=== PATIENT | female | born 1935 | race African-American/Black ===

== ENCOUNTER 2018-05-23 10:17 | Inpatient (IN) | payer MEDICARE, MEDICAID ==
[~2018-05-23] VITALS: Ht 154.9 cm; Wt 49.0 kg
[~2018-05-23 10:17] MED LIST: ALEN70TA46 PO; CALC1TAB99 PO; CIME400T PO; FENO145T36 MT; FERR325T6 MT; FOLI-43 MT; MELO-106 MT; PHEN97.22 GT
[2018-05-23] MEDS ORDERED: SODIUM CHLORIDE 0.9% 500 ML IV ONE (10:39)
[2018-05-23 11:21] LABS: BASOPHILS % 1.3 % (0.0-2.0); EOSINOPHILS % 3.7 % (0.0-5.0); HEMATOCRIT. 30.6 % (36.0-48.0); HEMOGLOBIN. 10.8 g/dL (12.0-16.0); LYMPHOCYTES % 18.4 % (20.0-50.0); MEAN CORPUSCULAR HEMOGLOBIN 34.1 pg (28.0-32.0); MEAN CORPUSCULAR VOLUME 96.9 fL (81.0-99.0); MEAN PLATELET VOLUME 9.5 fl (7.4-10.4); MONOCYTES % 10.3 % (2.0-8.0); NEUTROPHILS % 66.3 % (40.0-76.0); PLATELET 369 x1000/uL (130-400); RED BLOOD CELL COUNT 3.16 mill/uL (4.2-5.4); RED CELL DISTRIBUTION WIDTH 14.9 % (11.6-14.6)
[2018-05-23 11:28] LABS: CHLORIDE 102 mEq/L (98-107)
[2018-05-23 11:30] LABS: PARTIAL THROMBOPLASTIN TIME 25.8 sec (23.4-31.0); PROTHROMBIN TIME 10.9 sec (9.4-11.6)
[2018-05-23 11:36] LABS: PHENOBARBITAL 6.1 ug/mL (15.0-40.0)
[2018-05-23] MEDS ORDERED: ONDANSETRON HCL 4MG/2ML VIAL IV PRN (12:00)
[2018-05-23] MEDS ORDERED: NA PHOS,M-B/NA PHOS,DI-BA ENEMA 118ML PR PRN (12:00)
[2018-05-23] MEDS ORDERED: DEXT 5%/0.45% NACL 1000ML 1,000 ML IV SCH (12:00)
[2018-05-23] MEDS ORDERED: DIPHENHYDRAMINE 50MG/ML VIAL IV PRN (12:00)
[2018-05-23] MEDS ORDERED: IPRATROPIUM/ALBUTEROL 0.5-3(2.5)MG/3ML NEB INH PRN (12:00)
[2018-05-23] MEDS ORDERED: PHENOBARBITAL SODIUM 65MG/ML 1ML IV ONE (12:00)
[2018-05-23] MEDS ORDERED: PHENOBARBITAL SODIUM 65MG/ML 1ML IV NR (12:15)
[2018-05-23 14:00] VITALS: BP 101/44
[2018-05-23 16:00] VITALS: BP 101/44
[2018-05-23] MEDS ORDERED: LORAZEPAM 2MG/ML CPJ IV PRN (17:00)
[2018-05-23] MEDS ORDERED: FAMO20TA8 GT (18:21)
[2018-05-23] MEDS ORDERED: GEMF600T GT (18:21)
[2018-05-23] MEDS ORDERED: PNEUMOCOCCAL 23-VAL P-SAC VAC 0.5 ML IM ONE (18:30)
[2018-05-23 18:55] LABS: CLARITY URINE CLEAR (CLEAR); COLOR URINE YELLOW (YELLOW); KETONES URINE NEGATIVE (NEGATIVE); LEUKOCYTE ESTERASE URINE NEGATIVE (NEGATIVE); NITRITE URINE NEGATIVE (NEGATIVE); OCCULT BLOOD URINE NEGATIVE (NEGATIVE); PH URINE 8.5 (4.5-8.0); PROTEIN URINE NEGATIVE (NEGATIVE); SPECIFIC GRAVITY URINE 1.014 (1.005-1.030); UROBILINOGEN URINE 0.2 E.U./dL (0.2-1.0)
[2018-05-23 20:00] VITALS: BP 122/57
[2018-05-23] MEDS: PANTOPRAZOLE SODIUM 40 MG/VIAL IV SCH (20:29)
[2018-05-23] MEDS: LORAZEPAM 2MG/ML CPJ IV PRN (23:20)
[2018-05-23] MEDS: ACETAMINOPHEN 650MG SUPP PR PRN (23:20)
[2018-05-24] VITALS: BP 95/42
[2018-05-24 04:00] VITALS: BP 104/62
[2018-05-24 06:46] LABS: INR 1.1; PARTIAL THROMBOPLASTIN TIME 25.2 sec (23.4-31.0); PROTHROMBIN TIME 11.6 sec (9.4-11.6)
[2018-05-24 06:47] LABS: CHLORIDE 107 mEq/L (98-107)
[2018-05-24 06:56] LABS: AMYLASE 78 IU/L (25-115); HDL CHOLESTEROL 58 mg/dL (40-59)
[2018-05-24 06:57] LABS: LDL CHOLESTEROL 101 mg/dL (5-100)
[2018-05-24] MEDS: LORAZEPAM 2MG/ML CPJ IV PRN ×2 (07:32→21:34)
[2018-05-24 08:00] VITALS: BP 133/61
[2018-05-24] MEDS: PHENOBARBITAL SODIUM 65MG/ML 1ML IV SCH (08:29)
[2018-05-24] MEDS: PANTOPRAZOLE SODIUM 40 MG/VIAL IV SCH ×2 (08:30→21:32)
[2018-05-24] MEDS ORDERED: CEFAZOLIN 1000MG PREMIX 50 ML IV PRN (09:00)
[2018-05-24 10:04] LABS: BASOPHILS % 1.5 % (0.0-2.0); HEMATOCRIT. 27.9 % (36.0-48.0); HEMOGLOBIN. 9.4 g/dL (12.0-16.0); LYMPHOCYTES % 26.5 % (20.0-50.0); MEAN CORPUSCULAR HEMOGLOBIN 31.4 pg (28.0-32.0); MEAN PLATELET VOLUME 9.5 fl (7.4-10.4); MONOCYTES % 11.4 % (2.0-8.0); NEUTROPHILS % 55.6 % (40.0-76.0); PLATELET 335 x1000/uL (130-400); RED BLOOD CELL COUNT 3.01 mill/uL (4.2-5.4)
[2018-05-24 10:06] LABS: MEAN CORPUSCULAR VOLUME 92.9 fL (81.0-99.0)
[2018-05-24 12:00] VITALS: BP 123/47
[2018-05-24 16:00] VITALS: BP 120/54
[2018-05-24] MEDS ORDERED: MIDAZOLAM HCL 2 MG/2 ML VIAL IV NR (19:35)
[2018-05-24] MEDS ORDERED: MIDAZOLAM HCL 5 MG/5 ML VIAL ONE (19:37)
[2018-05-24] MEDS ORDERED: FENTANYL CITRATE/PF 50MCG/ML 2ML VIAL ONE (19:37)
[2018-05-24] MEDS ORDERED: CEFAZOLIN 1000MG PREMIX 50 ML IV ONE (19:54)
[2018-05-24 20:45] VITALS: BP 115/68
[2018-05-24] MEDS: ACETAMINOPHEN 650MG SUPP PR PRN (21:33)
[2018-05-25] VITALS: BP 110/62
[2018-05-25 04:00] VITALS: BP 112/79
[2018-05-25 08:00] VITALS: BP 112/40
[2018-05-25] MEDS: PHENOBARBITAL SODIUM 65MG/ML 1ML IV SCH (08:44)
[2018-05-25] MEDS ORDERED: SODIUM CHLORIDE 0.9% 500 ML IV ONE (10:00)
[2018-05-25 11:28] LABS: CHLORIDE 107 mEq/L (98-107)
[2018-05-25 12:00] VITALS: BP 114/56
[2018-05-25] MEDS ORDERED: SODIUM CHLORIDE 0.9% 10ML VIAL ONE (14:05)
[2018-05-25] MEDS ORDERED: SIMETHICONE 40 MG/0.6 ML 30ML ONE (14:05)
[2018-05-25 15:11] VITALS: BP 114/56
== END 2018-05-25 17:00 | DRG 393 ==
LOC: ER 10:17 → 6EST 10:45 → EDBEDREQ 10:48 → ENRESERV 11:45
PROVIDERS: ADMIT Internal Medicine; ATTEND Internal Medicine
PROC: 0DH68UZ Insertion of Feeding Device into Stomach, Via Natural or Artificial Opening Endoscopic (ICD-10-PCS; principal; 2018-05-24 17:30)
DX: K94.23 Gastrostomy malfunction (principal); E43 Unspecified severe protein-calorie malnutrition; D68.59 Other primary thrombophilia; G40.909 Epilepsy, unspecified, not intractable, without status epilepticus; G24.9 Dystonia, unspecified; R79.89 Other specified abnormal findings of blood chemistry; D64.9 Anemia, unspecified; K29.70 Gastritis, unspecified, without bleeding; R62.7 Adult failure to thrive; R13.12 Dysphagia, oropharyngeal phase; F03.90 Unspecified dementia, unspecified severity, without behavioral disturbance, psychotic disturbance, mood disturbance, and anxiety; Y83.3 Surgical operation with formation of external stoma as the cause of abnormal reaction of the patient, or of later complication, without mention of misadventure at the time of the procedure; K44.9 Diaphragmatic hernia without obstruction or gangrene; Z68.20 Body mass index [BMI] 20.0-20.9, adult; Y92.128 Other place in nursing home as the place of occurrence of the external cause; Z86.61 Personal history of infections of the central nervous system; Z79.899 Other long term (current) drug therapy
CPT/HCPCS: 36415; 71045; 74018; 76700; 80048; 80053; 80061; 80184; 81003; 82150; 83690; 84439; 84443; 85025; 85610; 85730; 87040; 87070; 87086; 87205; 92610; 93005; 96361; 96374; 97161; 99285; A6261; C9113; J0690; J1200; J2060; J2250; J2560; J3010; J7040; A4315

== ENCOUNTER 2018-12-01 12:31 | Inpatient (IN) | payer MEDICARE, MEDICAID ==
[~2018-12-01] VITALS: Ht 154.9 cm; Wt 50.9 kg
[~2018-12-01 12:31] MED LIST changes: +FAMO20TA8 GT; +GEMF600T GT
[2018-12-01] MEDS ORDERED: SODIUM CHLORIDE 0.9% 1,000 ML IV ONE (13:55)
[2018-12-01] MEDS ORDERED: PIPERACILLIN/TAZ 3.375G PREMIX 50 ML IV ONE (14:00)
[2018-12-01] MEDS ORDERED: VANCOMYCIN 1 G PREMIX 200 ML IV ONE (14:00)
[2018-12-01] MEDS ORDERED: SODIUM CHLORIDE 0.9% 1000ML BAG (SEPSIS BOLUS) IV ONE (14:00)
[2018-12-01] MEDS ORDERED: DIATR MEGLU/DIATRIZOATE SOLN 30ML ONE (14:20)
[2018-12-01 16:18] LABS: EOSINOPHILS % 2.8 % (0.0-5.0); HEMATOCRIT. 30.1 % (36.0-48.0); HEMOGLOBIN. 10.2 g/dL (12.0-16.0); LYMPHOCYTES % 27.1 % (20.0-50.0); MEAN CORPUSCULAR HEMOGLOBIN 33.2 pg (28.0-32.0); MEAN CORPUSCULAR VOLUME 97.9 fL (81.0-99.0); MEAN PLATELET VOLUME 9.7 fl (7.4-10.4); MONOCYTES % 11.5 % (2.0-8.0); NEUTROPHILS % 57.6 % (40.0-76.0); PLATELET 254 x1000/uL (130-400); RED BLOOD CELL COUNT 3.08 mill/uL (4.2-5.4); RED CELL DISTRIBUTION WIDTH 15.5 % (11.6-14.6)
[2018-12-01 16:21] LABS: CHLORIDE 103 mEq/L (98-107)
[2018-12-01 16:22] LABS: INR 1.1; PROTHROMBIN TIME 10.7 sec (9.1-11.1)
[2018-12-01 16:36] LABS: CARBAMAZEPINE < 0.5 ug/mL (4-12); PHENOBARBITAL < 2.1 ug/mL (15.0-40.0)
[2018-12-01 20:00] VITALS: BP 121/52
[2018-12-01 23:17] VITALS: BP 121/52
[2018-12-02] VITALS (7 sets, daily range): BP systolic 104–121; BP diastolic 42–58
[2018-12-02] MEDS ORDERED: VANCOMYCIN 1 G PREMIX 200 ML IV SCH (00:15)
[2018-12-02] MEDS: PIPERACILLIN/TAZ 3.375G PREMIX 50 ML IV SCH ×4 (02:42→22:06)
[2018-12-02] MEDS: DEXT 5%/0.45% NACL KCL 20MEQ/L 1,000 ML IV SCH ×3 (02:45→22:06)
[2018-12-02] MEDS ORDERED: VANCOMYCIN 1500MG in DEXTROSE 5% WATER 250ML IV SCH (04:00)
[2018-12-02 07:11] LABS: CHLORIDE 107 mEq/L (98-107)
[2018-12-02 07:33] LABS: BASOPHILS % 0.6 % (0.0-2.0); EOSINOPHILS % 3.5 % (0.0-5.0); HEMATOCRIT. 28.3 % (36.0-48.0); HEMOGLOBIN. 9.8 g/dL (12.0-16.0); LYMPHOCYTES % 22.7 % (20.0-50.0); MEAN CORPUSCULAR HEMOGLOBIN 32.9 pg (28.0-32.0); MEAN CORPUSCULAR VOLUME 95.5 fL (81.0-99.0); MEAN PLATELET VOLUME 9.8 fl (7.4-10.4); MONOCYTES % 11.5 % (2.0-8.0); NEUTROPHILS % 61.7 % (40.0-76.0); PLATELET 236 x1000/uL (130-400); RED BLOOD CELL COUNT 2.97 mill/uL (4.2-5.4); RED CELL DISTRIBUTION WIDTH 15.3 % (11.6-14.6)
[2018-12-02] MEDS: FAMOTIDINE 20MG/2ML VIAL IV SCH (08:30)
[2018-12-02] MEDS ORDERED: HEPARIN 5000 UNITS/ML VIAL SUBCUT SCH (09:00)
[2018-12-02] MEDS ORDERED: FAMOTIDINE 20MG/2ML VIAL IV SCH (09:00)
[2018-12-02] MEDS ORDERED: ACETAMINOPHEN 650MG SUPP PR PRN (15:30)
[2018-12-02] MEDS: PHENOBARBITAL SODIUM 65MG/ML 1ML IV SCH (21:37)
[2018-12-02] MEDS: ONDANSETRON HCL 4MG/2ML INJ IV PRN (22:09)
[2018-12-02] MEDS: VANCOMYCIN 750 MG PREMIX 150 ML IV SCH (23:48)
[2018-12-03] VITALS: BP 117/87
[2018-12-03] MEDS: PIPERACILLIN/TAZ 3.375G PREMIX 50 ML IV SCH ×2 (02:52→09:59)
[2018-12-03 04:00] VITALS: BP 119/47
[2018-12-03 07:51] LABS: HEMOGLOBIN 10.2 g/dL (12.0-16.0); MEAN CORPUSCULAR HEMOGLOBIN 32.3 pg (28.0-32.0); MEAN CORPUSCULAR VOLUME 94.8 fL (81.0-99.0); PLATELET 246 x1000/uL (130-400); RED BLOOD CELL COUNT 3.16 mill/uL (4.2-5.4); RED CELL DISTRIBUTION WIDTH 14.8 % (11.6-14.6)
[2018-12-03 08:00] VITALS: BP 109/49
[2018-12-03 08:09] LABS: CHLORIDE 102 mEq/L (98-107)
[2018-12-03 08:32] LABS: INR 1.1; PARTIAL THROMBOPLASTIN TIME 30.1 sec (23.4-31.0); PROTHROMBIN TIME 10.9 sec (9.1-11.1)
[2018-12-03] MEDS: FAMOTIDINE 20MG/2ML VIAL IV SCH (09:59)
[2018-12-03 12:00] VITALS: BP 115/47
[2018-12-03 16:00] VITALS: BP 119/42
[2018-12-03] MEDS ORDERED: PIPERACILLIN/TAZ 2.25G PREMIX 50 ML IV SCH (18:00)
[2018-12-03] MEDS: DEXT 5%/0.45% NACL KCL 20MEQ/L 1,000 ML IV SCH (18:05)
[2018-12-03] MEDS: VANCOMYCIN 750 MG PREMIX 150 ML IV SCH (18:11)
[2018-12-03 20:00] VITALS: BP 109/62
[2018-12-03] MEDS: PHENOBARBITAL SODIUM 65MG/ML 1ML IV SCH (20:57)
[2018-12-03] MEDS: PIPERACILLIN/TAZ 2.25G PREMIX 50 ML IV SCH (21:22)
[2018-12-04] VITALS: BP 119/56
[2018-12-04] MEDS: PIPERACILLIN/TAZ 2.25G PREMIX 50 ML IV SCH ×4 (02:57→22:17)
[2018-12-04] MEDS: ONDANSETRON HCL 4MG/2ML INJ IV PRN (02:57)
[2018-12-04 04:00] VITALS: BP 107/41
[2018-12-04 08:00] VITALS: BP 126/65
[2018-12-04 09:49] LABS: HEMATOCRIT 32.4 % (36.0-48.0); HEMOGLOBIN 11.1 g/dL (12.0-16.0); MEAN CORPUSCULAR HEMOGLOBIN 31.9 pg (28.0-32.0); MEAN CORPUSCULAR VOLUME 93.4 fL (81.0-99.0); PLATELET 278 x1000/uL (130-400); RED BLOOD CELL COUNT 3.47 mill/uL (4.2-5.4); RED CELL DISTRIBUTION WIDTH 14.8 % (11.6-14.6)
[2018-12-04 10:24] LABS: CHLORIDE 97 mEq/L (98-107)
[2018-12-04 10:32] LABS: PHOSPHORUS 3.8 mg/dL (2.5-4.9)
[2018-12-04] MEDS: FAMOTIDINE 20MG/2ML VIAL IV SCH (10:44)
[2018-12-04 12:00] VITALS: BP 106/56
[2018-12-04] MEDS: VANCOMYCIN 750 MG PREMIX 150 ML IV SCH (13:39)
[2018-12-04 16:00] VITALS: BP 126/73
[2018-12-04 20:00] VITALS: BP 122/58
[2018-12-04] MEDS: PHENOBARBITAL SODIUM 65MG/ML 1ML IV SCH (22:18)
[2018-12-05] VITALS: BP 120/61
[2018-12-05 04:00] VITALS: BP 115/66
[2018-12-05] MEDS: PIPERACILLIN/TAZ 2.25G PREMIX 50 ML IV SCH ×4 (05:46→21:27)
[2018-12-05] MEDS: DEXT 5%/0.45% NACL KCL 20MEQ/L 1,000 ML IV SCH ×3 (05:48→21:28)
[2018-12-05 08:00] VITALS: BP 132/96
[2018-12-05 08:05] LABS: BASOPHILS % 0.9 % (0.0-2.0); EOSINOPHILS % 2.3 % (0.0-5.0); HEMATOCRIT. 29.8 % (36.0-48.0); HEMOGLOBIN. 10.5 g/dL (12.0-16.0); LYMPHOCYTES % 25.5 % (20.0-50.0); MEAN CORPUSCULAR HEMOGLOBIN 33.2 pg (28.0-32.0); MEAN CORPUSCULAR VOLUME 94.6 fL (81.0-99.0); MEAN PLATELET VOLUME 9.5 fl (7.4-10.4); NEUTROPHILS % 57.3 % (40.0-76.0); PLATELET 275 x1000/uL (130-400); RED BLOOD CELL COUNT 3.15 mill/uL (4.2-5.4); RED CELL DISTRIBUTION WIDTH 14.4 % (11.6-14.6)
[2018-12-05 08:10] LABS: INR 1.1; PARTIAL THROMBOPLASTIN TIME 31.1 sec (23.4-31.0); PROTHROMBIN TIME 11.2 sec (9.1-11.1)
[2018-12-05 08:29] LABS: CHLORIDE 98 mEq/L (98-107)
[2018-12-05 08:37] LABS: PHOSPHORUS 3.9 mg/dL (2.5-4.9)
[2018-12-05] MEDS: FAMOTIDINE 20MG/2ML VIAL IV SCH (10:20)
[2018-12-05] MEDS: VANCOMYCIN 500 MG PREMIX 100 ML IV SCH (10:20)
[2018-12-05] MEDS ORDERED: DIATR MEGLU/DIATRIZOATE SOLN 30ML PEG NR (11:15)
[2018-12-05 12:00] VITALS: BP 118/55
[2018-12-05] MEDS ORDERED: MAGNESIUM 1 G PREMIX 100 ML IV NR (12:30)
[2018-12-05] MEDS ORDERED: LORAZEPAM 2MG/ML CPJ IV NR (14:00)
[2018-12-05] MEDS ORDERED: DEXTROSE 50% WATER 50ML SYRINGE IV PRN (15:30)
[2018-12-05 16:00] VITALS: BP 133/71
[2018-12-05] MEDS ORDERED: DIATR MEGLU/DIATRIZOATE SOLN 30ML ONE (16:16)
[2018-12-05] MEDS: BLOOD SUGAR DIAGNOSTIC STRIP TEST SCH ×2 (17:10→21:27)
[2018-12-05 20:00] VITALS: BP 139/54
[2018-12-05] MEDS: PHENOBARBITAL SODIUM 65MG/ML 1ML IV SCH (21:26)
[2018-12-06] VITALS (7 sets, daily range): BP systolic 100–125; BP diastolic 42–78
[2018-12-06] MEDS: VANCOMYCIN 500 MG PREMIX 100 ML IV SCH (01:11)
[2018-12-06] MEDS: PIPERACILLIN/TAZ 2.25G PREMIX 50 ML IV SCH ×3 (04:31→14:40)
[2018-12-06] MEDS: DEXT 5%/0.45% NACL KCL 20MEQ/L 1,000 ML IV SCH ×3 (06:00→15:03)
[2018-12-06 06:15] LABS: HEMATOCRIT 30.4 % (36.0-48.0); HEMOGLOBIN 10.4 g/dL (12.0-16.0); MEAN CORPUSCULAR HEMOGLOBIN 31.7 pg (28.0-32.0); MEAN CORPUSCULAR VOLUME 93.1 fL (81.0-99.0); PLATELET 256 x1000/uL (130-400); RED BLOOD CELL COUNT 3.27 mill/uL (4.2-5.4); RED CELL DISTRIBUTION WIDTH 14.9 % (11.6-14.6)
[2018-12-06] MEDS: BLOOD SUGAR DIAGNOSTIC STRIP TEST SCH ×3 (06:28→17:10)
[2018-12-06 06:46] LABS: CHLORIDE 100 mEq/L (98-107)
[2018-12-06] MEDS: FAMOTIDINE 20MG/2ML VIAL IV SCH (09:20)
[2018-12-06] MEDS ORDERED: MULTIVITAMINS,THER W-MINERALS TABLET PO SCH (16:15)
[2018-12-06] MEDS ORDERED: RISPERIDONE 0.25MG TABLET PO PRN (16:15)
[2018-12-06] MEDS: PHENOBARBITAL SODIUM 65MG/ML 1ML IV SCH (19:52)
== END 2018-12-06 20:20 | disposition home or self-care (01) | DRG 393 ==
LOC: ER 12:31 → 6EST 13:58 → EDBEDREQSVC 17:37 → EDBEDREQ 17:37 → ENRESERV 20:36 → 8WST 12-02 16:44
PROVIDERS: ADMIT Internal Medicine; ATTEND Internal Medicine
PROC: 0D20XUZ Change Feeding Device in Upper Intestinal Tract, External Approach (ICD-10-PCS; principal; 2018-12-05)
DX: K94.22 Gastrostomy infection (principal); I50.33 Acute on chronic diastolic (congestive) heart failure; E46 Unspecified protein-calorie malnutrition; L03.311 Cellulitis of abdominal wall; K94.23 Gastrostomy malfunction; R62.7 Adult failure to thrive; R13.12 Dysphagia, oropharyngeal phase; E86.0 Dehydration; G24.9 Dystonia, unspecified; F03.90 Unspecified dementia, unspecified severity, without behavioral disturbance, psychotic disturbance, mood disturbance, and anxiety; G40.909 Epilepsy, unspecified, not intractable, without status epilepticus; D64.9 Anemia, unspecified; E16.2 Hypoglycemia, unspecified; E83.42 Hypomagnesemia; I11.0 Hypertensive heart disease with heart failure; R00.1 Bradycardia, unspecified; M19.012 Primary osteoarthritis, left shoulder; M19.011 Primary osteoarthritis, right shoulder; Y83.8 Other surgical procedures as the cause of abnormal reaction of the patient, or of later complication, without mention of misadventure at the time of the procedure; Y82.8 Other medical devices associated with adverse incidents; Z86.61 Personal history of infections of the central nervous system; Z79.899 Other long term (current) drug therapy
CPT/HCPCS: 36415; 71045; 74018; 80048; 80156; 80165; 80184; 80185; 80202; 82962; 83605; 83735; 84100; 84145; 84443; 84484; 85027; 87070; 87077; 87186; 93005; 93306; 96365; 96367; 96368; 99285; A6261; C1893; J1644; J2060; J2405; J2543; J2560; J3370; J3475; J3490; J7030; J7040; J7060; Q9963

== ENCOUNTER 2019-03-29 09:29 | Emergency (ER) | payer MEDICARE, MEDICAID ==
[~2019-03-29] VITALS: Ht 149.9 cm; Wt 45.0 kg
[2019-03-29] MEDS ORDERED: SODIUM CHLORIDE 0.9% 1,000 ML IV ONE (10:15)
[2019-03-29 10:20] LABS: BASOPHILS % 0.5 % (0.0-2.0); EOSINOPHILS % 2.2 % (0.0-5.0); HEMATOCRIT. 31.1 % (36.0-48.0); HEMOGLOBIN. 10.4 g/dL (12.0-16.0); LYMPHOCYTES % 21.1 % (20.0-50.0); MEAN CORPUSCULAR HEMOGLOBIN 32.3 pg (28.0-32.0); MEAN CORPUSCULAR VOLUME 96.7 fL (81.0-99.0); MEAN PLATELET VOLUME 9.1 fl (7.4-10.4); NEUTROPHILS % 65.2 % (40.0-76.0); PLATELET 310 x1000/uL (130-400); RED BLOOD CELL COUNT 3.22 mill/uL (4.2-5.4); RED CELL DISTRIBUTION WIDTH 15.5 % (11.6-14.6)
[2019-03-29 10:25] LABS: PARTIAL THROMBOPLASTIN TIME 27.9 sec (23.4-31.0); PROTHROMBIN TIME 10.7 sec (9.6-11.0)
[2019-03-29 10:26] LABS: CHLORIDE 106 mEq/L (98-107)
[2019-03-29 13:40] VITALS: BP 125/72
== END 2019-03-29 14:10 | disposition home or self-care (01) ==
LOC: ER 09:29
DX: K94.29 Other complications of gastrostomy (principal); G40.909 Epilepsy, unspecified, not intractable, without status epilepticus; G24.9 Dystonia, unspecified; Y83.3 Surgical operation with formation of external stoma as the cause of abnormal reaction of the patient, or of later complication, without mention of misadventure at the time of the procedure; Y92.018 Other place in single-family (private) house as the place of occurrence of the external cause
CPT/HCPCS: 36415; 71045; 80053; 83605; 85025; 85610; 85730; 93005; 99284; J7030

== ENCOUNTER 2019-06-03 12:05 | Emergency (ER) | payer MEDICARE, MEDICAID ==
[~2019-06-03] VITALS: Ht 157.5 cm; Wt 54.0 kg
[~2019-06-03 12:05] MED LIST changes: -ALEN70TA46 PO; +ALEN70TA68 PO
[2019-06-03] MEDS ORDERED: DIATR MEGLU/DIATRIZOATE SOLN 30ML PO ONE ×2 (12:30→12:45)
[2019-06-03] MEDS ORDERED: DIATR MEGLU/DIATRIZOATE SOLN 30ML ONE (13:12)
[2019-06-03] MEDS: NA PHOS,M-B/NA PHOS,DI-BA ENEMA 118ML PR ONE (14:30)
[2019-06-03 20:32] VITALS: BP 114/68
== END 2019-06-03 20:32 | disposition home or self-care (01) ==
LOC: ER 12:05
DX: K94.23 Gastrostomy malfunction (principal); K59.00 Constipation, unspecified; F03.90 Unspecified dementia, unspecified severity, without behavioral disturbance, psychotic disturbance, mood disturbance, and anxiety; Z79.899 Other long term (current) drug therapy
CPT/HCPCS: 74018; 99284; Q9963; 99283